=== PATIENT | male | born 1985 | race Caucasian/White ===

== ENCOUNTER 2018-04-03 10:47 | Emergency (ER) | payer OTHER ==
[~2018-04-03] VITALS: Ht 175.3 cm; Wt 65.8 kg
[~2018-04-03 10:47] MED LIST: ALBU90OI INH; AMOX500 PO; CLIN300 PO; Crutch1 EACH MISC; DOXY100 PO; HYDACE5 PO; IBUP800 PO; Motrin600 MG PO; NAPR500 PO; Norco 5-325 Ta1 EACH PO; PRED10 PO; TRAM50 PO
[2018-04-03] MEDS ORDERED: Crutch1 EACH MISC (12:04)
[2018-04-03] MEDS ORDERED: KETO10 PO (12:04)
== END 2018-04-03 12:25 | disposition home or self-care (01) ==
LOC: ER 10:47
DX: S83.004A Unspecified dislocation of right patella, initial encounter (principal); F17.220 Nicotine dependence, chewing tobacco, uncomplicated; X58.XXXA Exposure to other specified factors, initial encounter
CPT/HCPCS: 29505; 73564; 99283-25

== ENCOUNTER 2018-04-19 16:08 | Emergency (ER) | payer OTHER ==
[~2018-04-19] VITALS: Ht 175.3 cm; Wt 64.9 kg
[~2018-04-19 16:08] MED LIST changes: +KETO10 PO
[2018-04-19] MEDS ORDERED: KETO10 PO (17:36)
== END 2018-04-19 17:51 | disposition home or self-care (01) ==
LOC: ER 16:08
DX: M25.561 Pain in right knee (principal); F17.220 Nicotine dependence, chewing tobacco, uncomplicated
CPT/HCPCS: 99283

== ENCOUNTER 2018-09-22 19:36 | Emergency (ER) | payer SELFPAY ==
[~2018-09-22] VITALS: Ht 175.3 cm; Wt 65.8 kg
[2018-09-22] MEDS ORDERED: Amoxicillin875 MG PO (19:59)
[2018-09-22] MEDS ORDERED: Norco 5-325 Ta1 EACH PO (19:59)
== END 2018-09-22 20:05 | disposition home or self-care (01) ==
LOC: ER 19:36
DX: H66.91 Otitis media, unspecified, right ear (principal); Z79.899 Other long term (current) drug therapy; J45.909 Unspecified asthma, uncomplicated; F17.220 Nicotine dependence, chewing tobacco, uncomplicated
CPT/HCPCS: 99282

== ENCOUNTER 2021-05-26 19:01 | Emergency (ER) | payer SELFPAY ==
[~2021-05-26] VITALS: Ht 177.8 cm; Wt 69.8 kg
[~2021-05-26 19:01] MED LIST changes: +Amoxicillin875 MG PO
== END 2021-05-26 23:06 | disposition left against medical advice (07) ==
LOC: ER 19:01
DX: Z53.21 Procedure and treatment not carried out due to patient leaving prior to being seen by health care provider (principal)
CPT/HCPCS: 99281

== ENCOUNTER 2022-10-25 20:26 | Emergency (ER) | payer SELFPAY ==
[~2022-10-25] VITALS: Ht 175.3 cm; Wt 65.8 kg
[2022-10-25 21:06] LABS: BASOPHILS ABSOLUTE AUTO 0.05 K/mm3 (0.00-0.23); BASOPHILS PERCENT AUTO 1 % (0-2); EOSINOPHILS ABSOLUTE AUTO 0.06 K/mm3 (0.00-0.68); EOSINOPHILS PERCENT AUTO 1 % (0-6); Hematocrit 46.2 % (37.0-53.0); Hemoglobin 15.4 g/dL (13.5-17.5); IMMATURE GRAN ABSOLUTE AUTO 0.01 K/mm3 (0.00-0.10); IMMATURE GRAN PERCENT AUTO 0 % (0-1); LYMPHOCYTES ABSOLUTE AUTO 1.71 K/mm3 (0.84-5.20); LYMPHOCYTES PERCENT AUTO 29 % (21-46); MONOCYTES ABSOLUTE AUTO 0.67 K/mm3 (0.16-1.47); MONOCYTES PERCENT AUTO 11 % (4-13); Mean Corpuscular HGB 28.6 pg (26.0-34.0); Mean Corpuscular HGB Conc 33.3 g/dL (31.5-36.5); Mean Corpuscular Volume 86 fL (80-100); Mean Platelet Volume 9.5 fL (9.1-12.4); NEUTROPHILS ABSOLUTE AUTO 3.43 K/mm3 (1.96-9.15); NEUTROPHILS PERCENT AUTO 58 % (41-73); Platelet Count 349 K/mm3 (150-400); RDW Coefficient Variation 13.2 % (11.7-14.2); RDW Standard Deviation 41.3 fL (35.1-46.3); Red Blood Cell Count 5.38 M/mm3 (4.30-5.90); White Blood Cell Count 5.93 K/mm3 (4.00-11.30)
[2022-10-25 21:31] LABS: Influenza A, PCR NEGATIVE (NEGATIVE); Influenza B, PCR NEGATIVE (NEGATIVE); Resp Syncytial Virus, PCR NEGATIVE (NEGATIVE); SARS-Cov-2 (COVID-19) PCR, MMC NEGATIVE (NEGATIVE)
[2022-10-25 21:42] LABS: Ethanol (Alcohol), Blood, Med 144 mg/dL; Salicylate 3.6 mg/dL (2.8-20.0)
[2022-10-25 21:47] LABS: Alanine Aminotransfer (ALT/SGP 27 U/L (12-78); Albumin, Blood 4.2 g/dL (3.4-5.0); Alk Phos 64 U/L (50-136); Anion Gap 2 mmol/L (6-16); Aspartate Aminotrans (AST/SGOT 25 U/L (12-37); Bilirubin, Total 0.2 mg/dL (0.1-1.0); Blood Urea Nitrogen 9 mg/dL (8-24); Bun/Creatinine Ratio 11.9 (12.0-20.0); CO2, Blood 28 mmol/L (21-32); Calcium, Blood 9.4 mg/dL (8.5-10.1); Chloride, Blood 110 mmol/L (98-108); Creatinine, Blood 0.75 mg/dL (0.60-1.20); Globulin, Blood 4.2 g/dL (2.2-4.0); Glomerular Filtration Rate 121 (60-); Glucose, Blood 101 mg/dL (70-99); Sodium, Blood 140 mmol/L (136-145); Total Protein, Blood 8.4 g/dL (6.4-8.2)
[2022-10-25 21:54] LABS: Acetaminophen, Random <2.0 ug/mL (10.0-30.0)
[2022-10-25 22:53] LABS: Source, Urine Clean Catch
[2022-10-25 22:59] LABS: Appearance, Urine Clear (Clear); Bilirubin, Urine Neg (Neg); Blood, Urine Neg (Neg); Color, Urine Yellow (P-Yellow); Glucose Qualitative, Urine Neg (Neg); Ketones, Urine Neg (Neg); Leukocyte Esterase, Urine Neg (Neg); Nitrite, Urine Neg (Neg); Protein, Urine Neg (Neg); Urobilinogen, Urine NORM (Normal)
== END 2022-10-26 00:30 | disposition home or self-care (01) ==
LOC: ER 20:26
PROVIDERS: Emergency Medicine
DX: F32.9 Major depressive disorder, single episode, unspecified (principal); F10.129 Alcohol abuse with intoxication, unspecified; J45.909 Unspecified asthma, uncomplicated; G47.00 Insomnia, unspecified; F17.220 Nicotine dependence, chewing tobacco, uncomplicated; Z20.822 Contact with and (suspected) exposure to COVID-19; Y90.6 Blood alcohol level of 120-199 mg/100 ml
CPT/HCPCS: 0241U; 36415; 80053; 81003; 85025; 99285; G0480

== ENCOUNTER 2023-07-23 21:37 | Inpatient (IN) | payer OTHER ==
[~2023-07-23] VITALS: Ht 177.8 cm; Wt 61.3 kg
[2023-07-23 21:58] LABS: BASOPHILS ABSOLUTE AUTO 0.04 K/mm3 (0.00-0.23); BASOPHILS PERCENT AUTO 1 % (0-2); EOSINOPHILS ABSOLUTE AUTO 0.03 K/mm3 (0.00-0.68); EOSINOPHILS PERCENT AUTO 1 % (0-6); Hematocrit 43.8 % (37.0-53.0); Hemoglobin 14.5 g/dL (13.5-17.5); IMMATURE GRAN ABSOLUTE AUTO 0.03 K/mm3 (0.00-0.10); IMMATURE GRAN PERCENT AUTO 1 % (0-1); LYMPHOCYTES ABSOLUTE AUTO 1.15 K/mm3 (0.84-5.20); LYMPHOCYTES PERCENT AUTO 18 % (21-46); MONOCYTES ABSOLUTE AUTO 0.49 K/mm3 (0.16-1.47); MONOCYTES PERCENT AUTO 8 % (4-13); Mean Corpuscular HGB 29.1 pg (26.0-34.0); Mean Corpuscular HGB Conc 33.1 g/dL (31.5-36.5); Mean Corpuscular Volume 88 fL (80-100); Mean Platelet Volume 9.2 fL (9.1-12.4); NEUTROPHILS ABSOLUTE AUTO 4.64 K/mm3 (1.96-9.15); NEUTROPHILS PERCENT AUTO 73 % (41-73); Platelet Count 292 K/mm3 (150-400); RDW Standard Deviation 41.5 fL (35.1-46.3); Red Blood Cell Count 4.98 M/mm3 (4.30-5.90); White Blood Cell Count 6.38 K/mm3 (4.00-11.30)
[2023-07-23 22:11] LABS: Albumin, Blood 3.8 g/dL (3.4-5.0); Albumin/Globulin Ratio 1.1 (0.8-1.8); Bilirubin, Total 0.3 mg/dL (0.1-1.0); Bun/Creatinine Ratio 15.4 (12.0-20.0); Calcium, Blood 8.3 mg/dL (8.5-10.1); Creatinine, Blood 0.84 mg/dL (0.60-1.20); Globulin, Blood 3.5 g/dL (2.2-4.0); Potassium, Blood 3.7 mmol/L (3.5-5.5); Total Protein, Blood 7.3 g/dL (6.4-8.2)
[2023-07-23 22:30] LABS: Base Excess Venous -2.3 mmol/L; Bicarbonate Venous 22.1 mmol/L (24.0-30.0); PCO2 Venous 43.7 mmHg (38-42); pH Blood Venous 7.34 (7.34-7.37)
[2023-07-23 23:02] LABS: U Amphetamine Screen DETECTED; U Barbituate Screen Not Detected; U Benzodiazapine Screen Not Detected; U Buprenorphine Screen Not Detected; U Cannabinoids Screen DETECTED; U Cocaine Screen Not Detected; U Methadone Screen Not Detected; U Methamphetamine Screen DETECTED; U Opiates Screen Not Detected; U Oxycodone Screen Not Detected; U Phencyclidine Screen Not Detected
[2023-07-24] VITALS (33 sets, daily range): BP systolic 80–137; BP diastolic 54–94
[2023-07-24 00:21] LABS: International Normalized Ratio 0.99; Prothrombin Time Results 10.4 Sec (9.7-11.5)
[2023-07-24 04:31] LABS: BASOPHILS ABSOLUTE AUTO 0.04 K/mm3 (0.00-0.23); BASOPHILS PERCENT AUTO 0 % (0-2); EOSINOPHILS ABSOLUTE AUTO 0.04 K/mm3 (0.00-0.68); EOSINOPHILS PERCENT AUTO 0 % (0-6); Hematocrit 43.9 % (37.0-53.0); Hemoglobin 14.7 g/dL (13.5-17.5); IMMATURE GRAN ABSOLUTE AUTO 0.03 K/mm3 (0.00-0.10); IMMATURE GRAN PERCENT AUTO 0 % (0-1); LYMPHOCYTES ABSOLUTE AUTO 1.38 K/mm3 (0.84-5.20); LYMPHOCYTES PERCENT AUTO 9 % (21-46); MONOCYTES ABSOLUTE AUTO 1.17 K/mm3 (0.16-1.47); MONOCYTES PERCENT AUTO 8 % (4-13); Mean Corpuscular HGB 28.8 pg (26.0-34.0); Mean Corpuscular HGB Conc 33.5 g/dL (31.5-36.5); Mean Corpuscular Volume 86 fL (80-100); Mean Platelet Volume 9.3 fL (9.1-12.4); NEUTROPHILS ABSOLUTE AUTO 12.42 K/mm3 (1.96-9.15); NEUTROPHILS PERCENT AUTO 82 % (41-73); Platelet Count 321 K/mm3 (150-400); RDW Coefficient Variation 12.9 % (11.7-14.2); RDW Standard Deviation 40.5 fL (35.1-46.3); White Blood Cell Count 15.08 K/mm3 (4.00-11.30)
[2023-07-24 04:54] LABS: Albumin, Blood 3.8 g/dL (3.4-5.0); Albumin/Globulin Ratio 1.1 (0.8-1.8); Bilirubin, Total 0.4 mg/dL (0.1-1.0); Bun/Creatinine Ratio 20.3 (12.0-20.0); Calcium, Blood 8.5 mg/dL (8.5-10.1); Creatinine, Blood 0.64 mg/dL (0.60-1.20); Globulin, Blood 3.6 g/dL (2.2-4.0); Potassium, Blood 3.9 mmol/L (3.5-5.5); Total Protein, Blood 7.4 g/dL (6.4-8.2)
--- NOTE | 2023-07-24 07:00 | NUR ---
ASSUME CARE: I have assumed care of this patient.
--- NOTE | 2023-07-24 12:35 | NUR ---
EXTUBATION: Pt extubated to RA without complications. Pt's sister at bedside.
--- NOTE | 2023-07-24 16:49 | NUR ---
Patient is sleeping and has his sister and girlfriend, Ginny, bedside. They both share about the trauma of the night as I lead them through some critical incident stress debriefing and create space for them to express their thoughts and emotions from this event with their loved one. We talk about their coping skills and resources and and helpful ways to frame the events they encountered. Suddenly the patient wakes up and is speaking loudly demanding to know why he is in the hospital and what happened to him which sets in motion staff assistance for the patient. I tell the family that I will follow-up next day. The family showed evidence of greater peace in their processing of the events.
--- NOTE | 2023-07-24 18:39 | NUR ---
SHIFT SUMMARY: Pt extubated this afternoon. He is alert to gentle stimulation, but declines nursing care. Sitter at bedside. 2 MD hold was explained to pt, girlfriend, and family. RN read pt his civil rights, pt declined to acknowledge understanding. He stated, "I just want to go home" repeatedly when asked to sign paperwork. Bilateral wrist TATs in place as pt will not verbalize safety plan to remove restraints. Nguyen remains in place until pt more alert.
[2023-07-25] VITALS (11 sets, daily range): BP systolic 93–125; BP diastolic 56–81
--- NOTE | 2023-07-25 11:30 | NUR ---
SHIFT ASSESSMENT ASSUMED CARE OF PT @ 0700. BEDSIDE REPORT RECEIVED FROM NOC NURSE. PT AWAKENS EASILY TO VERBAL STIMULI. ALERT TO PERSON, PLACE, AND YEAR. QUITE FORGETFUL ABOUT INCIDENT AND PRIOR CONVERSATIONS WITH THIS NURSE AND PHYSICIAN. INITIALLY ON LOW DOSE PRECEDEX BUT TURNED OFF, SEE FLOWSHEET FOR TIMES. PT DENIES SI, STATES "I DON'T KNOW WHY I DO DUMB SHIT" & "I MAY NEED MEDICATIONS FOR DEPRESSION". PT FREQUENTLY ASKS TO GO HOME. PT C/O NECK AND CHEST PAIN FROM CPR, DENIES SOB. VSS, ON RA c SATS >95%. REID CATH INITIALLY IN PLACE, DC'D THIS AM. PT TAKEN TO RADIOLOGY WITH THIS NURSE FOR BARIUM STUDY, SEE ST CHARTING. PT NOW MEDICAL FLOOR STATUS. PSYCHIATRIST IN ROOM WITH PT NOW.
--- NOTE | 2023-07-25 15:28 | NUR ---
UPDATE PT BECAME QUITE AGITATED THIS AFTERNOON. SECURITY NOITIFIED AND AT BEDSIDE. PT STATING "I'M FUCKING GOING HOME AND EATING A STEAK, I DON'T CARE ABOUT YOUR RULES. I HAVE MY RIGHTS". THIS NURSE AND SECURITY STAFF EXPLAINED MULTIPLE TIMES THAT PATIENT IS ON A 2 MD HOLD AND REVIEWED HIS STATE OF [facility] CIV[facility] RIGHTS. PT STATES " I DON'T GIVE A SHIT". PT INSISTS HE IS GOING HOME. PT NOT REDIRECTABLE, DOES NOT WANT TO COMPLY WITH TREATMENT PLANS. REQUESTING PHYSICIAN. DR. MOON CALLED AND CAME DOWN TO BEDSIDE TO ALSO EXPLAIN THE CIRCUMSTANCES AND THE 2 MD HOLD. DUE TO PT BEING PERSISTENT ABOUT LEAVING, BILATERAL IV'S DC'D. PRIOR TO THIS ESCALATION, THIS NURSE SPOKE WITH PTS SISTER WHO WAS AT BEDSIDE THIS AFTERNOON. PER SISTER ODALYS, PT STATED "WHEN I LEAVE HER I'M GOING TO KILL MYSELF". ODALYS ALSO STATED PT IS QUITE MANIPULATIVE AND WILL SAY WHATEVER IT TAKES TO GET OUT OF THE HOSPITAL, HE SUCCESSFULLY TALKED HIS WAY OUT OF THE HOSPITAL AFTER HIS FIRST SUICIDE ATTEMPT WHEN HE SLIT HIS WRISTS. PT CURRENTLY IN BED TALKING ON THE PHONE TO HIS GF, ATTEMPTING TO GET A RIDE HOME. SECURITY IS AT BEDSIDE AWAITING PTS DEPARTURE. POLICE WILL BE CALLED IF/ WHEN PT LEAVES.
--- NOTE | 2023-07-25 16:26 | NUR ---
REPORT CALLED TO AMADA PENA. PT TAKEN TO ROOM 346 IN WHEELCHAIR BY MARY IN SECURITY. AT THE TIME OF DEPARTURE PT COOPERATIVE WITH MOVE TO MEDICAL FLOOR BUT REFUSING IV INSERTION, ALSO REFUSING ALL MEDICATIONS. 1:1 SITTER WENT WITH PT TO NEW ROOM.
--- NOTE | 2023-07-25 18:31 | NUR ---
TRANSFER NOTE: PATIENT BROUGHT UP VIA WHEELCHAIR BY SECURE AND SITTER. PATIENT ORIENTED TO THE ROOM AND ROOM CLEARED FOR SI SAFETY. PATIENT REFUSES IV ACCESS GOT AN NO IV ACCESS ORDER FROM THE DOCTOR AND REFUSED HIS TRAY. HIS SISTER ODALYS WAS NOTIFIED OF INHOUSE TRANSFER. HIS GIRLFRIEND MERLYN ARRIVED TO BRING HIM PANTS AND UNDERWEAR SHE HAS BEEN ACCOMPANYING HIM. HE WANTS TO GO HOME, BUT HAS BEEN ADVISED HE IS ON A HOLD AND IF HE LEAVES THE POLICE WILL BE CALLED AND HE WILL BE BROUGHT BACK AND THE PROCESS WILL HAVE TO START OVER. THIS INFORMATION IS UPSETTING TO THE PATIENT. HE IS CURRENTLY IN HIS ROOM, GIRLFRIEND HAZEL IS PRESENT. SITTER PRESENT. PLAN OF CARE ONGOING.
--- NOTE | 2023-07-25 19:18 | NUR ---
SPOKE WITH PATIENT'S MOM BINDU. SHE WAS UPSET THAT NO ONE CALLED HER TO INFORM HER THAT HER SON WAS TRANSFERRED TO THE MEDICAL FLOOR. THE PATIENT'S SISTER ODALYS WAS NOTIFIED OF TRANSFER. PATIENT'S MOTHER STATES THAT WE SHOULD BE CONTACTING HER PRIOR TO HER DAUGHTER. GAVE THE MOTHER AN UPDATE ON THE PATIENT: NO IV'S, REFUSES IV'S AND NOW HAVING A NO IV ACCESS ORDER AND THAT PATIENT HAS BEEN REFUSING FOOD. SHE STATED " WE NEED TO SEDATE HIM AND PUT IV'S IN HIM" I ADVISED HER THAT WE CANNOT DO THAT. SHE VOICES THAT HE IS "NOT RIGHT IN THE HEAD" AND THAT "IF WE WOULD TURN THE CAMERAS OFF, SHE WILL COME IN AND TAKE CARE OF IT HERSELF" SHE ALSO WAS INQUIRING ABOUT THE NOTES FROM THE PSYCHIATRIST THAT CAME AND SEEN HIM TODAY, BUT I WAS UNABLE TO LOCATE NOTES. CONVERSATION ENDED BY ADVISING THE PATIENT'S MOTHER KNOW WHICH ROOM HE IS IN.
--- NOTE | 2023-07-26 04:16 | NUR ---
SHIFT SUMMARY ADMITTED FOR UT. FULL CODE. HIGH SI, INVOLUNTARY HOLD IN PLACE. 1:[address] 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 A&O X4, HIGHLY AGITATED AT BEGINNING OF SHIFT. ANXIETY MEDICATION GIVEN PO. THIS WAS EFFECTIVE. HE DID REFUSE VITAL SIGNS, WE WILL KEEP TRYING. HE IS ON RA, INDEPENDENT. PSYCHIATRIC CONSULT IS DR. LI. NICORETTE DENILSON GIVEN THIS SHIFT ONE TIME.
[2023-07-26 05:33] VITALS: BP 112/78
[2023-07-26 07:21] VITALS: BP 140/76
[2023-07-26 15:44] VITALS: BP 128/85
--- NOTE | 2023-07-26 19:57 | NUR ---
SHIFT SUMMARY PATIENT RESTING IN BED MOST OF DAY, PACING AT TIMES IN ROOM, REQUESTING TO GO HOME AND SMOKE. DR LI CAME BY AND NOTIFIED PATIENT HE WILL BE GOING TO PSYCH INPATIENT FACILITY. PATIENT BECAME VERY UPSET IN THE ROOM VERBALLY AGRESSIVE AND AGITATED WITH STAFF WANTING TO LEAVE BUT ALSO CRYING ABOUT THE SITUATION. DR LI ORDERED MEDICATIONS TO HELP CALM HIM DOWN AND REDUCE ANXIETY. MEDICATIONS GIVEN. SISTER PRESENT FOR MOST OF VISIT UNTIL HE YELLED AT HER AGAIN AND SHE LEFT. PATIENT SLEPT MOST OF AFTERNOON IN BED TURNING HIMSELF FREQUENTLY. THIS EVENING GIRLFRIEND STOPPED BY FOR VISIT FOR A COUPLE HOURS AND HE SAID SOMETHING VERY UPSETTING TO HER AND SHE LEFT ABRUPTLY. PATIENT UP OUT OF ROOM YELLING AND PUNCHING THE BENCH SEAT PAD IN HIS ROOM. PREPARED FOODS TEAM LEADER CONTACTED SECURITY FOR BACKUP AND NOTIFIED PATIENT THAT IS NOT APPROPRIATE BEHAVIOR. PATIENT TALKED DOWN AND AGREABLE TO CALL HIS GIRLFRIEND, HE VERBALIZES AGREEMENT TO NOT YELL OR CUSS AT HER OR PHONE WILL BE REMOVED IMMEDIATELY, SECURITY STAFF AND SITTER NEXT TO PATIENT FOR PHONE CALL. PREPARED FOODS TEAM LEADER NOTIFIED SITTER, SECURITY AND FABIOLA, FREIGHT ELEVATOR ERECTOR RN, SINCE THIS HAPPENED AT SHIFT CHANGE, FOR PHONE AND CHORD TO REMOVED FROM ROOM ONCE PATIENT DONE WITH PHONE CALL. PATIENT ALSO MEDICATED WITH ADDITIONAL ZYPREXA ZYDIS, BENADRYL AND LORAZEPAM A COUPLE HOURS EARLY REQUESTED BY FREIGHT ELEVATOR ERECTOR RN, AIRCRAFT ENGINE SPECIALIST MARY ESPINOZA ALSO AWARE. PATIENT REFUSED TO GET OUT OF HIS CLOTHING AND INTO PAPER SCRUBS BUT DID GIVE HIS SHOES TO THIS PREPARED FOODS TEAM LEADER. SHOES NOW IN CLOSET LOCKED.
[2023-07-26 20:37] VITALS: BP 125/87
--- NOTE | 2023-07-27 03:55 | NUR ---
SHIFT SUMMARY ADMITTED FOR NM. HIGH SI - INVOLUNTARY HOLD IN PLACE. FULL CODE. 1:1 SITTER. AGITATED AT TIMES, PRN AND SCHEDULED MEDICATION GIVEN FOR ANXIETY. SEE EMAR. REGULAR DIET, HE DID REQUEST SNACKS THIS SHIFT. HE IS A&O X4. INDEPENDENT. HE WAS COOPERATIVE TO TAKE HIS MEDICATIONS. ON RA.
[2023-07-27 13:31] VITALS: BP 125/87
[2023-07-27 15:49] VITALS: BP 127/76
--- NOTE | 2023-07-27 17:31 | NUR ---
DISCHARGE NOTE PT DISCHARGED TO [facility] AT APPROX 17:30. PT A&OX4, VSS, AMB IND W/ SBA, VOIDING, TOLERATING PO, AND DENIED PAIN. PT ESCOURTED OUT VIA W/C BY SECURITY AND TRISTEN FROM [employer]. BELONINGS WERE GIVEN TO TRISTEN BY BENJA COTTON.
== END 2023-07-27 17:38 | DRG 922 ==
LOC: ER 21:37 → ICUE 07-24 00:52 → MEDS 07-24 00:52 → ICUE 07-24 01:10 → MEDS 07-25 16:24 → ENPENDDIS 07-27 13:48 → MEDS 07-27 17:38
PROVIDERS: Emergency Medicine; Family Medicine; ADMIT Student in an Organized Health Care Education/Training Program
PROC: 5A12012 Performance of Cardiac Output, Single, Manual (ICD-10-PCS; principal; 2023-07-24)
PROC: 5A1935Z Respiratory Ventilation, Less than 24 Consecutive Hours (ICD-10-PCS; 2023-07-24)
PROC: 0BH17EZ Insertion of Endotracheal Airway into Trachea, Via Natural or Artificial Opening (ICD-10-PCS; 2023-07-24)
DX: T71.162A Asphyxiation due to hanging, intentional self-harm, initial encounter (principal); I46.8 Cardiac arrest due to other underlying condition; J96.01 Acute respiratory failure with hypoxia; I77.71 Dissection of carotid artery; F32.2 Major depressive disorder, single episode, severe without psychotic features; F11.20 Opioid dependence, uncomplicated; F15.20 Other stimulant dependence, uncomplicated; G93.1 Anoxic brain damage, not elsewhere classified; F10.90 Alcohol use, unspecified, uncomplicated; J45.909 Unspecified asthma, uncomplicated; F90.9 Attention-deficit hyperactivity disorder, unspecified type; F17.290 Nicotine dependence, other tobacco product, uncomplicated; G47.00 Insomnia, unspecified; R13.19 Other dysphagia; T14.91XA Suicide attempt, initial encounter; X83.8XXA Intentional self-harm by other specified means, initial encounter
CPT/HCPCS: 31500; 36415; 51702; 70450; 70460; 70496; 70498; 71045; 72125; 74230; 80053; 82803; 85025; 85610; 85730; 87040; 92526; 92610; 92611; 93005; 93010; 94002; 94003; 94762; 99285-25; A9270; C9113; J0295; J1650; J2060; J2250; J2704; J3010; J7050; J7120; Q9967